=== PATIENT | female | born 1995 | race Caucasian/White ===

== ENCOUNTER 2018-09-20 18:24 | Emergency (ER) | payer MEDICAID, OTHER ==
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
[2018-09-20 21:16] VITALS: BP 119/70
== END 2018-09-20 21:17 | disposition home or self-care (01) ==
DX: R10.9 Unspecified abdominal pain (principal); Z3A.18 18 weeks gestation of pregnancy; Z91.040 Latex allergy status

== ENCOUNTER 2018-10-15 18:19 | Emergency (ER) | payer SELFPAY ==
[2018-10-15 18:37] VITALS: BP 113/69
--- NOTE | 2018-10-15 19:20 | EDPHY ---
H & P Stated Complaint: r upper molar broke eating popcorn/pain martini 23 wks Source: Patient Exam Limitations: No limitations - Personal History LMP (Females 10-55): Current Tetanus Diphtheria and Acellular Pertussis (TDAP): Yes Tetanus Vaccine Date: 2015 - Medical/Surgical History Hx Asthma: No Hx Chronic Respiratory Disease: No Hx Diabetes: No Hx Cardiac Disease: No Hx Renal Disease: No Hx Cirrhosis: No Hx Alcoholism: No Hx HIV/AIDS: No Hx Splenectomy or Spleen Trauma: No Other PMH: med hx-none. surg-appy and neville,rt foot - Social History Smoking Status: Never smoked Time Seen by Provider: 10/15/18 19:19 HPI/ROS: HPI: This is a 23-year-old female who presents with Chief Complaint: r upper molar broke eating popcorn/pain martini 23 wks Location: Right upper molar Quality: Broken 2 Duration: 5 days Signs and Symptoms: no fever, no nausea, no vomiting, no photophobia, no noise sensitivity, no neck stiffness, no ear pain, no tinnitus, no nasal congestion, no sinus pressure, no weakness, no radiation, no aura Timing: Acute Severity: Moderate Context: Patient is , currently 23 weeks , presents with biting down on a piece of food and cracking her right upper molar approximately 5 days ago. She reports that she has hot and cold sensitivity to food and liquids. She has called her dentist and she has an appointment this Monday in approximately 4 days. She reports that she feels mild, nonradiating, constant pain that is worsened with certain foods and liquids. She took Advil for 3 days and then called the dentist today and they advised her to stop taking Advil as she is . Patient reports that she feels the baby moving and denies any abdominal pain, vaginal bleeding. She is taking vitamins and has regular care. Modifying Factors: Advil Comment: ROS: A comprehensive 10 system review of systems is otherwise negative aside from elements mentioned in the history of present illness. MEDICAL/SURGICAL/SOCIAL HISTORY: Medical history: Generally healthy. Does not take any regular medications. Surgical history: Appendectomy, cholecystectomy, right foot surgery Social history: Never smoked. Family history noncontributory. CONSTITUTIONAL: Extremely polite and cooperative young adult female, awake and alert, no obvious distress HEENT: Atraumatic and normocephalic, PERRL, EOMI. Nares patent; no rhinorrhea; no nasal mucosal edema. Tympanic membranes clear. Oropharynx clear, tooth 3. Shows partial crack with sensitivity to palpation but no surrounding gingival erythema or fluctuance. No signs of gingivitis. no exudate and moist pink mucosa. Airway patent. No lymphadenopathy. No meningismus. No malocclusion. Cardiovascular: Normal S1/S2, regular rate, regular rhythm, without murmur rub or gallop. PULMONARY/CHEST: Symmetrical and nontender. Clear to auscultation bilaterally. Good air movement. No accessory muscle usage. ABDOMEN: Soft, gravid, nontender, no rebound, no guarding, no peritoneal signs , no masses or organomegaly. No CVAT. EXTREMITIES: 2/2 pulses, strength 5/5, no deformities, no clubbing, no cyanosis or edema. NEUROLOGICAL: no focal neuro deficits. GCS 15. Speech is clear. SKIN: Warm and dry, no erythema. no rash. Good capillary refill. (Anel Foreman) Constitutional: Initial Vital Signs Temperature (C) 37 C 10/15/18 18:34 Heart Rate 79 10/15/18 18:34 Respiratory Rate 16 10/15/18 18:34 Blood Pressure 113/69 10/15/18 18:34 O2 Sat (%) 99 10/15/18 18:34 O2 Delivery Mode Room Air Allergies/Adverse Reactions: cephalexin monohydrate [From Keflex] Allergy (Severe, Verified 10/15/18 18:33) SWELLING IN FACE latex Allergy (Verified 10/15/18 18:33) KIWI Allergy (Uncoded 08/06/15 20:56) Home Medications: Medication Instructions Recorded Vit27&Calcium/Iron/FA 08/06/15 [] Amoxicillin Trihydrate [Amoxil] 500 mg PO TID 7 Days cap 10/15/18 Medical Decision Making ED Course/Re-evaluation: Vital signs reviewed and stable upon arrival. Offered patient dental block and she politely declined. Patient has an appointment to see her dentist this Monday. Given amoxicillin in the emergency room and prescription for antibiotic prophylaxis. Patient has no signs of facial cellulitis, dental abscess. Patient has no abdominal pain, vaginal bleeding. Patient feels the baby moving. This patient was seen under the supervision of my secondary supervising physician. I evaluated care for this patient independently. Discussed this patient with Dr. Grady who did not see the patient. (Anel Foreman) I did not see this patient while she was in the emergency department. However her care was discussed with the PA while the patient was in the department. I agree with treatment plan and management (Tony Grady) Differential Diagnosis: Differential diagnosis includes but is not limited to broken tooth, nerve injury , dental cavity, periapical abscess. (Anel Foreman) - Data Points Medications Given: Discontinued Medications Amoxicillin (Amoxicillin) 500 mg PO EDNOW ONE PRN Reason: Protocol Stop: 10/15/18 19:26 Last Admin: 10/15/18 19:34 Dose: 500 mg Departure - Departure Disposition: Home, Routine, Self-Care Clinical Impression: Odontalgia, Cracked tooth Condition: Good Instructions: Toothache (ED) Additional Instructions: Follow up with a dentist in the next week. Eat a soft diet. Take Tylenol 650 mg every 4 hr as needed for pain. Do not take any NSAIDs which include Advil, Aleve, ibuprofen, Motrin, while you are . Taking antibiotic as directed until complete. Do not miss any doses. Referrals: Suad Ling MD [Primary Care Provider] - As per Instructions [facility] [Outside] - As per Instructions Prescriptions: Amoxicillin Trihydrate [Amoxil] 500 mg PO TID 7 Days cap
== END 2018-10-15 19:49 | disposition home or self-care (01) ==
DX: K03.81 Cracked tooth (principal); K08.89 Other specified disorders of teeth and supporting structures; Z3A.23 23 weeks gestation of pregnancy